=== PATIENT | male | born 1965 | race Hispanic/Latino ===

== ENCOUNTER 2022-04-02 23:58 | Inpatient (IN) | payer BC, SELFPAY ==
[2022-04-03] MEDS ORDERED: Dextrose 5% in Water 1,000 ML IV PRN (02:06)
[2022-04-03] MEDS ORDERED: Guaifenesin DM 100-10/5 ML UDCUP PO PRN (02:06)
[2022-04-03] MEDS ORDERED: Acetaminophen 325 MG TAB PO PRN (02:06)
[2022-04-03] MEDS ORDERED: Ondansetron PF 4 MG/2 ML Vial IVP PRN (02:06)
[2022-04-03] MEDS ORDERED: Dextrose 50% Abboject 50 ML SYRINGE SLOW IVP PRN (02:06)
[2022-04-03] MEDS ORDERED: Dextrose 50% Abboject 50 ML SYRINGE ONE (02:10)
[2022-04-03] MEDS ORDERED: hydrALAZINE 20 MG/ML VIAL SLOW IVP PRN (02:37)
[2022-04-03] MEDS ORDERED: Morphine 4 MG/ML VIAL SLOW IVP PRN (02:37)
[2022-04-03 02:44] VITALS: BMI 34.9
[2022-04-03] MEDS ORDERED: Furosemide 100 MG/10 ML VIAL SLOW IVP SCH (03:15)
[2022-04-03] MEDS: Dextrose 10% in Water 1,000 ML IV SCH ×2 (03:28→11:21)
[2022-04-03 04:09] LABS: #Lymphocytes 1.1 thou/uL (1.20-3.40); #Neutrophils 6.6 thou/uL (1.40-6.50); %Eosinophils 0.5 % (0.0-10.0); %Lymphocytes 12.9 % (21.0-51.0); %Monocytes 10.8 % (0.0-10.0); %Neutrophils 75.8 % (42.0-75.0); Hemoglobin 14.4 g/dL (14.0-18.0); Hemoglobin A1c 6.7 % (4.0-6.0); Mean Corpuscular HGB CONC 31.1 g/dL (32.0-36.0); Mean Corpuscular Hemoglobin 27.8 pg (27.0-31.0); Mean Corpuscular Volume 89.5 fl (78.0-98.0); Mean Platelet Volume 9.3 fL (7.4-10.4); Platelet Count 153 thou/uL (130-400); RBC Distribution Width 15.6 % (11.5-14.5); Red Blood Cell (RBC) Count 5.18 mill/uL (4.70-6.10); White Blood Cell (WBC) Count 8.7 thou/uL (4.8-10.8)
[2022-04-03 04:30] LABS: Albumin 3.6 g/dL (3.5-5.0); Anion Gap 14 mmol/L (10-20); BUN (Urea Nitrogen) 16 mg/dL (8.4-25.7); BUN/Creatinine Ratio 16.49; Calc. Creatinine Clearance 109 mL/min (70-130); Calcium 8.5 mg/dL (7.8-10.44); Carbon Dioxide 28 mmol/L (22-29); Chloride 103 mmol/L (98-107); Estimated GFR 90; Glucose 153 mg/dL (70-105); Phosphorus 4.5 mg/dL (2.3-4.7); Potassium 3.6 mmol/L (3.5-5.1); Sodium 141 mmol/L (136-145)
[2022-04-03 04:31] LABS: Bacteria/HPF None Seen HPF (None Seen); Bilirubin Negative (Negative); Blood, Urine Negative (Negative); Clarity Clear (Clear); Glucose, Urine (Dipstick) Greater than 1000 mg/dL (Negative); Ketone, Urine Negative (Negative); Leukocyte Negative Leu/uL (Negative); Nitrite Negative (Negative); Protein, Urine (Dipstick) 20 mg/dL (Neg-Trace); RBC/HPF 0-3 HPF (0-3); Specific Gravity, Urine 1.027 (1.002-1.036); Squamous Epithelial None Seen HPF (0-3); Urobilinogen Normal mg/dL (Less than 2); WBC/HPF 0-3 HPF (0-3); pH, Urine 5.5 (5.0-9.0)
[2022-04-03] MEDS: Furosemide 40 MG/4 ML VIAL SLOW IVP SCH ×2 (06:39→13:21)
[2022-04-03] MEDS: Famotidine 20 MG TAB PO SCH ×2 (08:44→20:41)
[2022-04-03] MEDS: Enoxaparin Sodium 40 MG/0.4 ML SYRINGE SC SCH (08:44)
[2022-04-03] MEDS ORDERED: FLU VACC QS2022-23(6MOS UP)/PF 60 MCG/0.5 ML SYRINGE IM ONE (09:00)
[2022-04-03] MEDS ORDERED: Dextrose 10% in Water 1,000 ML IV SCH (10:56)
[2022-04-03] MEDS ORDERED: metFORMIN 500 MG TAB PO SCH (17:00)
[2022-04-04 04:01] LABS: #Eosinphils 0.2 thou/uL (0.0-0.7); #Monocytes 1.2 thou/uL (0.11-0.59); #Neutrophils 5.9 thou/uL (1.40-6.50); %Basophils 0.3 % (0.0-1.0); %Eosinophils 2.1 % (0.0-10.0); %Lymphocytes 21.2 % (21.0-51.0); %Monocytes 13.2 % (0.0-10.0); %Neutrophils 63.2 % (42.0-75.0); Hemoglobin 14.6 g/dL (14.0-18.0); Mean Corpuscular HGB CONC 32.6 g/dL (32.0-36.0); Mean Platelet Volume 9.1 fL (7.4-10.4); Platelet Count 137 thou/uL (130-400); RBC Distribution Width 15.4 % (11.5-14.5); Red Blood Cell (RBC) Count 5.03 mill/uL (4.70-6.10); White Blood Cell (WBC) Count 9.4 thou/uL (4.8-10.8)
[2022-04-04 04:25] LABS: Anion Gap 10 mmol/L (10-20); BUN (Urea Nitrogen) 19 mg/dL (8.4-25.7); Calc. Creatinine Clearance 109 mL/min (70-130); Calcium 8.7 mg/dL (7.8-10.44); Carbon Dioxide 33 mmol/L (22-29); Chloride 100 mmol/L (98-107); Estimated GFR 96; Glucose 92 mg/dL (70-105); Potassium 3.2 mmol/L (3.5-5.1); Sodium 140 mmol/L (136-145)
[2022-04-04] MEDS ORDERED: Carvedilol 25 MG TAB PO SCH (08:00)
[2022-04-04] MEDS: Lisinopril 20 MG TAB PO SCH (08:42)
[2022-04-04] MEDS: Furosemide 40 MG TAB PO SCH (08:42)
[2022-04-04] MEDS: Carvedilol 25 MG TAB PO SCH ×2 (08:42→17:35)
[2022-04-04] MEDS: Enoxaparin Sodium 40 MG/0.4 ML SYRINGE SC SCH (08:42)
[2022-04-04] MEDS: Famotidine 20 MG TAB PO SCH ×2 (08:42→21:14)
[2022-04-04] MEDS ORDERED: Potassium Chloride 20 MEQ TAB PO SCH (12:15)
[2022-04-05 04:30] LABS: Anion Gap 12 mmol/L (10-20); BUN (Urea Nitrogen) 19 mg/dL (8.4-25.7); Calc. Creatinine Clearance 113 mL/min (70-130); Calcium 8.7 mg/dL (7.8-10.44); Carbon Dioxide 30 mmol/L (22-29); Chloride 101 mmol/L (98-107); Estimated GFR 99; Glucose 202 mg/dL (70-105); Potassium 3.6 mmol/L (3.5-5.1); Sodium 139 mmol/L (136-145)
[2022-04-05] MEDS: Carvedilol 25 MG TAB PO SCH ×2 (08:55→16:56)
[2022-04-05] MEDS: Enoxaparin Sodium 40 MG/0.4 ML SYRINGE SC SCH (08:56)
[2022-04-05] MEDS: Furosemide 40 MG TAB PO SCH (08:56)
[2022-04-05] MEDS: Famotidine 20 MG TAB PO SCH ×2 (08:56→21:24)
[2022-04-05] MEDS ORDERED: Regadenoson 0.4 MG/5 ML SYRINGE ONE (10:07)
[2022-04-05] MEDS: Lisinopril 20 MG TAB PO SCH (16:54)
[2022-04-05] MEDS ORDERED: Carvedilol 6.25 MG TAB PO SCH (17:30)
[2022-04-06] MEDS: Lisinopril 20 MG TAB PO SCH ×2 (09:46→20:33)
[2022-04-06] MEDS: Famotidine 20 MG TAB PO SCH ×2 (09:46→20:33)
[2022-04-06] MEDS: Furosemide 40 MG TAB PO SCH (09:46)
[2022-04-06] MEDS: Enoxaparin Sodium 40 MG/0.4 ML SYRINGE SC SCH (09:46)
[2022-04-06] MEDS: Carvedilol 6.25 MG TAB PO SCH ×2 (09:46→16:29)
[2022-04-07 04:26] LABS: Anion Gap 14 mmol/L (10-20); BUN (Urea Nitrogen) 21 mg/dL (8.4-25.7); Calc. Creatinine Clearance 113 mL/min (70-130); Calcium 8.8 mg/dL (7.8-10.44); Carbon Dioxide 27 mmol/L (22-29); Chloride 104 mmol/L (98-107); Estimated GFR 99; Glucose 117 mg/dL (70-105); Potassium 3.7 mmol/L (3.5-5.1); Sodium 141 mmol/L (136-145)
[2022-04-07] MEDS: Carvedilol 6.25 MG TAB PO SCH (09:54)
[2022-04-07] MEDS: Furosemide 40 MG TAB PO SCH (09:54)
[2022-04-07] MEDS: Enoxaparin Sodium 40 MG/0.4 ML SYRINGE SC SCH (09:54)
[2022-04-07] MEDS: Famotidine 20 MG TAB PO SCH (09:54)
[2022-04-07] MEDS: Lisinopril 20 MG TAB PO SCH (09:54)
[2022-04-07 12:14] VITALS: BP 114/84; TEMP 97.7
== END 2022-04-07 13:35 | disposition home or self-care (01) | DRG 637 ==
LOC: IMCU/EMU 23:58 → 2NO 04-03 18:19
PROVIDERS: ADMIT Internal Medicine; ATTEND Internal Medicine
DX: E11.649 Type 2 diabetes mellitus with hypoglycemia without coma (principal); I50.23 Acute on chronic systolic (congestive) heart failure; I42.8 Other cardiomyopathies; I44.2 Atrioventricular block, complete; I47.20 Ventricular tachycardia, unspecified; E66.9 Obesity, unspecified; E87.6 Hypokalemia; I27.20 Pulmonary hypertension, unspecified; I11.0 Hypertensive heart disease with heart failure; F10.10 Alcohol abuse, uncomplicated; Z68.33 Body mass index [BMI] 33.0-33.9, adult; Z79.899 Other long term (current) drug therapy; Z79.84 Long term (current) use of oral hypoglycemic drugs
CPT/HCPCS: 36415; 36416; 78452; 80048; 80069; 81001; 83036; 84443; 84484; 85025; 93005; 93010; 93017; 93306; A9500; J1610; J1650; J1940; J7999